=== PATIENT | male | born 1950 | race Caucasian/White ===

== ENCOUNTER → 2019-10-05 | Outpatient (CLI) | payer OTHER ==
--- NOTE | 2019-10-05 17:49 | CT ---
EXAMINATION TYPE: CT abdomen wo/w con DATE OF EXAM: 10/05/2019 COMPARISON: INDICATION: possible obstruction DLP: 1539 mGycm, Automated exposure control for dose reduction was used. CONTRAST: 100 mL of Isovue 300. Study performed with Oral Contrast TECHNIQUE: Axial images were obtained from above the diaphragm to the pubic rami in the axial plane a t 5 mm thick sections. Reconstructed images are reviewed on the computer in the coronal plane. FINDINGS: Limited CT sections are obtained the lung bases. The lung bases are clear. CT ABDOMEN: Liver: There is some hypodensity along the ligamentum teres may be some fatty infiltration or small c yst. Series 3 image 19. Spleen: Normal Pancreas: Normal Adrenal glands: The adrenal glands are normal. Gallbladder: Normal Kidneys: No masses are evident. No hydronephrosis is present. No cysts are present. Delayed images were obtained through the kidneys, which remain unremarkable. Aorta: Vascular calcification is within the aorta. Inferior vena cava: Normal. Loops of bowel within the abdomen are normal. No suspicious dilated loops of bowel are evident. Oral contrast extends to distal small bowel loops. There are loops of bowel which are incompletely dist ended or lack oral contrast limiting their evaluation. Appendix: Normal as visualized. IMPRESSIONS: 1. 1. Normal CT abdomen. 2. Oral contrast extends to the distal small bowel loops without evidence of obstruction
== END | disposition home or self-care (01) ==
LOC: RADCTMAIN 07:35
DX: R10.30 Lower abdominal pain, unspecified (principal)
CPT/HCPCS: 82565; 84520; 74170; 36415; Q9967

== ENCOUNTER → 2020-02-04 | Outpatient (CLI) | payer OTHER ==
[~2020-02-04] MED LIST: REGADENOSON 0.4 MG/5 ML SYRINGE IV ONE
--- NOTE | 2020-02-04 10:39 | NM ---
EXAMINATION TYPE: NM stress lexiscan cardiolite DATE OF EXAM: 02/04/2020 COMPARISON: NONE HISTORY: Chronic ischemic heart disease TECHNIQUE: After the intravenous administration of 9.82 mCi Tc 99m Sestamibi - Cardiolite resting SP ECT images acquired 45 minutes post injection. The patient received 0.4mg Lexiscan, 26.5 mCi Tc 99m Sestamibi - Stress images obtained [address] injection FINDINGS: There is a small defect on the stress images within the mid anterior wall extending towards the cardi ac apex. This area has normal radiotracer distribution on the resting images. Polar maps also define the reversible perfusion defect at this level. Findings can be compatible with stress-induced ischemi c change. Correlate with EKG changes. Gated wall motion has some dyskinesia along the anterior wall. Ejection fraction is normal at 63%. IMPRESSION: Stress-induced ischemic change within the anterior wall extending towards cardiac apex. Some dyskines ia along the anterior munguia are evident. Correlate for stress-induced ischemic change.
--- NOTE | 2020-02-05 08:34 | EST ---
EXERCISE STRESS AGE: 69 SEX: M HT: 6 ft. WT: 220 lbs. PROTOCOL: Lexiscan Cardiolite STAGE: N/A DURATION OF EXERCISE: N/A HEART RATE REST: 59 BLOOD PRESSURE REST: 142/71 MAXIMUM HEART RATE ACHIEVED: 84 MAXIMUM BLOOD PRESSURE: 142/71 85% MPHR: 127 100% MPHR: 149 METS: N/A INDICATIONS: Chronic ischemic heart disease CLINICAL INFORMATION: Baseline rhythm is sinus mechanism, rate of 59, borderline first-degree AV block, nonspecific ST-T wave changes, baseline blood pressure 142/71 mmHg. Patient received injection of Lexiscan. Electrocardiograph monitoring revealed no evidence of diagnostic ischemic ST deviation. Cardiolite was injected per protocol. CONCLUSION: 1. Nondiagnostic electrocardiograph stress testing. 2. Nuclear images will be reported separately. MMODL / IJN: [id number] /
== END | disposition home or self-care (01) ==
LOC: RADNMMAIN 08:06
DX: G24.9 Dystonia, unspecified (principal)
CPT/HCPCS: 93017; 78452; A9500; J2785

== ENCOUNTER → 2021-02-26 | Outpatient (CLI) | payer OTHER ==
--- NOTE | 2021-02-26 11:52 | CONS ---
CONSULTATION DATE OF SERVICE: 02/26/2021 This 70-year-old gentleman has been evaluated in [facility] for obstructive sleep apnea-hypopnea syndrome. HISTORY OF PRESENT ILLNESS/SLEEP-WAKE EVALUATION: Patient was diagnosed with obstructive sleep apnea 7 years ago in [place], [place]. Since that time he has been on treatment with CPAP. This is the same CPAP unit and it is now old. He sleeps by himself; no clear information about his snoring while he is using machine, but he wakes up from sleep two times when he uses the machine. I do not have information about his previous sleep studies. His sleep schedule is from midnight until 8 or 9 a.m. He does have problems with falling asleep, although no TV in bedroom. He usually sleeps on the side position. He grinds his teeth, has dry mouth, restless legs. In the morning he wakes up tired, has difficulties paying attention, falling asleep during the day, worries about his sleep, has problems with memory, concentration, irritability, depression, anxiety, sexual dysfunction. [place] Sleepiness Scale is 6, which is in normal range, but the patient naps up to 2 times naps during the day, at 2 p.m. and 8 p.m. He feels refreshed after naps. No vivid dreams during naps. No history of hypnagogic hallucinations, sleep paralysis or cataplexy. PAST MEDICAL HISTORY: Positive for coronary artery disease, status post heart attack in 2010, hypertension, hyperlipidemia, arthritis, episodes of headaches. MEDICATIONS: Metoprolol, allopurinol, aspirin 81 mg. PAST SURGICAL HISTORY: Three stent insertions: two in 2010 and one in 2019. SOCIAL HISTORY: Positive for smoking cigars. Alcohol consumption occasional. FAMILY HISTORY: Diabetes, cancer. REVIEW OF SYSTEMS: Awakenings from sleep, sleepiness during the day while using his CPAP equipment. No fevers. No double vision. No recent chest pain. No shortness of breath. No abdominal pain. No bleeding episodes. No blood in the urine. No seizure episodes. PHYSICAL EXAMINATION: GENERAL APPEARANCE: Pleasant gentleman without distress. VITAL SIGNS: BP 119/78, HR 61, RR 16, height 5 feet 10-1/4 inches, weight 229, body mass index 32.8, temperature 96.7, oxygen saturation at room air 95%. HEENT: PERRLA, EOMI, evaluation of oropharynx showed tongue protrudes midline. Extremely low position of soft palate; Mallampati IV. NECK: Supple, no JVD. Thyroid is not palpable. Neck measures 18-1/2 inches in circumference. LUNGS: Clear to percussion and to auscultation. Good air exchange. No wheezing or rhonchi. HEART: S1, S2 regular. No murmurs, gallops, or rubs. ABDOMEN: Soft and nontender. Bowel sounds are present. No organomegaly appreciated. EXTREMITIES: No clubbing or cyanosis. SOCIAL WORK[employer]: Awake, alert, and oriented X3. Cranial nerves 2 to 7 intact. There is no fasciculation or atrophy. noted. No focal deficits observed. IMPRESSION: 1. Obstructive sleep apnea-hypopnea syndrome for 7 years. Patient still wakes up while using CPAP with nocturia and takes two naps during the day, indicating sleepiness, extremely low position of soft palate, Mallampati IV, wide neck, 18-1/2 inches in circumference; obstructive sleep apnea-hypopnea syndrome. 2. Mild obesity. Body mass index 32.8. 3. Coronary artery disease, status post heart attack in 2010, status post two stent insertions in 2010 and one stent insertion in 2019. 4. Hypertension. 5. Hyperlipidemia. 6. History of arthritis. 7. History of headaches. PLAN: 1. Polysomnography for evaluation of patient's breathing during sleep. I do not have results of previous sleep studies which were done about 7 years ago. Machine needs to be replaced. 2. CPAP, if necessary BiPAP titration for correction of respiratory abnormalities. 3. Preferable position during sleep on the side. 4. No driving if patient feels any sleepiness. 5. I will see patient for follow up visit to explain results of testing and following plan. Thank you very much for referring this patient for consultation. Sincerely, Tera Winkler MD, PhD, FAASM Diplomat of [employer] Sleep Medicine Board of [employer] [employer] Stabilizing Machine Operator of [facility] [place] MMMARCELO / MISAEL: [id number] /
== END | disposition home or self-care (01) ==
LOC: SLEEP 09:56
PROVIDERS: ATTEND Internal Medicine
DX: G47.33 Obstructive sleep apnea (adult) (pediatric) (principal); E66.9 Obesity, unspecified; Z68.32 Body mass index [BMI] 32.0-32.9, adult; I25.10 Atherosclerotic heart disease of native coronary artery without angina pectoris; I10 Essential (primary) hypertension; E78.5 Hyperlipidemia, unspecified; Z87.39 Personal history of other diseases of the musculoskeletal system and connective tissue; Z86.69 Personal history of other diseases of the nervous system and sense organs
CPT/HCPCS: 99211

== ENCOUNTER → 2021-09-24 | Outpatient (CLI) | payer OTHER | END | disposition home or self-care (01) | LOC: LABPAT 12:30 | PROVIDERS: ATTEND Internal Medicine Cardiovascular Disease | DX: Z53.9 Procedure and treatment not carried out, unspecified reason (principal) ==

== ENCOUNTER → 2021-09-30 | Outpatient (CLI) | payer OTHER ==
--- NOTE | 2021-09-30 14:53 | P.PN ---
Subjective DATE: 09/30/2021 FOLLOW UP VISIT. Patient with obstructive sleep apnea hypopnea syndrome return to sleep center for follow-up visit. Recently patient had sleep study which documented obstructive sleep apnea hypopnea syndrome. Patient was initiated on PAP therapy and today is first visit after he was started on treatment with new CPAP unit. Patient was able to use PAP equipment every night for the whole night. The patient does not have significant problems with the mask, PAP pressure and humidification. [place] sleepiness scale is 6. I checked information from PAP unit. PAP unit pressure 9 cm H2O. Usage is 80 % for more then 4 hours, average 5 hours 22 minutes per night. Leak is increased to 61.9 l/m. Apnea Hypopnea Index is 3, which is normal. MEDICATIONS:1. Metoprolol 2. Allopurinol 3. Aspirin 81 mg once a day During physical exam: GENERAL: A pleasant patient without any distress. VITAL SIGNS: BP 115/73 heart rate 61 ,RR14 [id number] 96.8oxygen saturation at room air 94% HEENT: PERRLA, EOMI.low position of soft palate, Mallapati[] . NECK: Supple. No JVD. LUNGS: Clear to percussion and to auscultation. Good air exchange. No wheezing or rhonchi. HEART: S1, S2 regular. ABDOMEN: Soft and nontender.[] EXTREMITIES: No clubbing or cyanosis. TAPPER SUPERVISOR: Awake, alert, and oriented x3. No focal deficit. Impressions: 1. Obstructive sleep apnea-hypopnea syndrome. Patient demonstrated great compliance with treatment, benefiting from treatment. normal respiration on CPAP. 2. [ coronary artery disease status post heart attack in 2010 status post stent insertions in 2010 and 2019]. 3. Hypertension []. 4. Hyperlipidemia []. 5. History of headaches Plan: 1. Continue using PAP equipment every night for the whole night. 2. To change air filter at least 1-2 times per month. 3. PAP unit should stay lower then position of the head. 4. Advised patient to remove all remaining water from humidifier canister daily and make it dry after each usage. Refill canister with fresh distilled water before each usage. 5. Sleep hygiene with regular time in bed for at least 8 hours. 6. Precautions related to driving. No driving if feel any sleepiness. 7. I will maintain prescription for PAP supplies including mask, tube, filters. 8. Follow up visit in 6 months or earlier if patient has any problems. 9. Watching weight. Thank you very much for allowing me to participate in the management of your patient. Tera Winkler MD, PhD, FAASM. Diplomat of [place] [employer], Sleep Medicine Board by [employer] [employer] Promotional Advertising Assistant of [facility] [place]
== END ==
LOC: SLEEP 13:49
PROVIDERS: ATTEND Internal Medicine
DX: G47.33 Obstructive sleep apnea (adult) (pediatric) (principal); I25.10 Atherosclerotic heart disease of native coronary artery without angina pectoris; I25.2 Old myocardial infarction; I10 Essential (primary) hypertension; E78.5 Hyperlipidemia, unspecified; Z95.5 Presence of coronary angioplasty implant and graft; Z87.898 Personal history of other specified conditions; Z79.82 Long term (current) use of aspirin; Z79.899 Other long term (current) drug therapy
CPT/HCPCS: 99212

== ENCOUNTER → 2023-12-20 | Outpatient (CLI) | payer OTHER ==
--- NOTE | 2023-12-20 14:20 | CT ---
EXAMINATION TYPE: CT sinus wo con CT DLP: 468 mGycm, Automated exposure control for dose reduction was used. DATE OF EXAM: 12/20/2023 1:44 PM COMPARISON: CT brain 04/21/2022. CLINICAL INDICATION:Male, 73 years old with history of J30.9 rhinitis; PHH, rhinitis CONTRAST: None. TECHNIQUE: Multiple thin axial images were obtained through the paranasal sinuses without the use of IV contrast. Additional coronal and sagittal reformatted images were submitted for evaluation. FINDINGS: Frontal sinuses: Normally developed and aerated. Frontal Recess: Clear Maxillary Sinuses: Normally developed and aerated. Maxillary Infundibula([facility]): Clear, No Tarik cells identified. Ethmoid sinuses: Normally developed. The right ethmoid sinuses clear. Minimal mucosal thickening of t he left posterior ethmoid sinus. Ethmoidal notch: Protected and abutting the lateral lamina. Sphenoid sinuses: Normally developed and aerated. There is sellar sphenoid sinus pneumatization witho ut evidence of dehiscence. There is dehiscence of the bilateral carotid canals. No evidence of optic nerve dehiscence within the sphenoid sinus. Sphenoethmoidal recesses: Clear. Nasal septum: Deviated to the left with spurring. Nasal Turbinates: Within normal limits. Mastoid air cells & middle ears: The air cells are clear. The middle ears are grossly unremarkable. Modified Soft tissues & Brain: Partially seen without gross abnormality. Globes are intact. Other: Cribriform plate demonstrates symmetric Keros classification type 2 cribriform plate. No evidence of bony dehiscence of skull base. Lamina papyracea is intact without evidence of remote orbital fracture or orbital prolapse into the e thmoid sinus. IMPRESSION: 1. Minimal mucosal disease of the posterior left ethmoid sinus. Remaining paranasal sinuses are clear . 2. The ostiomeatal units, frontonasal and sphenoethmoidal recesses are clear. [facility], , 12/20/2023 2:17 PM
== END ==
LOC: RADCTMAIN 13:16
PROVIDERS: ATTEND Family Medicine
DX: J31.0 Chronic rhinitis (principal)
CPT/HCPCS: 70486